=== PATIENT | female | born 1995 ===

== ENCOUNTER 2020-10-04 07:03 | Day surgery (SDC) | payer OTHER ==
[2020-10-04] MEDS ORDERED: IBU600 MG PO (11:12)
[2020-10-04] MEDS ORDERED: PERCOCET 5-3251 EACH PO (11:12)
== END 2020-10-04 13:46 | disposition home or self-care (01) ==
LOC: CIR.AMB 07:03
PROVIDERS: ATTEND Obstetrics & Gynecology Gynecology
DX: D27.1 Benign neoplasm of left ovary (principal); Z20.822 Contact with and (suspected) exposure to COVID-19